=== PATIENT | female | born 1960 | race Caucasian/White ===

== ENCOUNTER 2016-05-16 15:53 | Emergency (ER) | payer BC, OTHER ==
[~2016-05-16] VITALS: Ht 167.6 cm; Wt 52.0 kg
[2016-05-16 16:10] VITALS: BP 139/103; PULSE 70; RESP 14; TEMP 98.7; O2SAT 95
--- NOTE | 2016-05-16 18:39 | RADHPO ---
EXAM DATE/TIME: 05/16/2016 18:07 [facility] COMPARISON: CT BRAIN W/O CONTRAST, September 01, 2014, 23:10. INDICATIONS : Cephalgia and right cranial numbness since fall two days ago. RADIATION DOSE: 64.08 CTDIvol (mGy) MEDICAL HISTORY : Hypertension. Gastroesophageal reflux disease. SURGICAL HISTORY : None. ENCOUNTER: Initial ACUITY: 2 days PAIN SCALE: 8/10 LOCATION: Right temporal TECHNIQUE: Multiple contiguous axial images were obtained of the head. Using automated exposure control and adj ustment of the mA and/or kV according to patient size, radiation dose was kept as low as reasonably a chievable to obtain optimal diagnostic quality images. FINDINGS: CEREBRUM: The ventricles are normal for age. No evidence of midline shift, mass lesion, hemorrhage or acute in farction. No extra-axial fluid collections are seen. POSTERIOR FOSSA: The cerebellum and brainstem are intact. The 4th ventricle is midline. The cerebellopontine angle i s unremarkable. EXTRACRANIAL: The visualized portion of the orbits is intact. SKULL: The calvaria is intact. No evidence of skull fracture. There is soft tissue swelling over the right parietal bone. CONCLUSION: Negative exam with no evidence of hemorrhage or mass effect. Dani Childs MD on May 16, 2016 at 18:36 Board Certified Radiologist. This report was verified electronically.
--- NOTE | 2016-05-16 18:41 | RADHPO ---
EXAM DATE/TIME: 05/16/2016 18:07 [facility] COMPARISON: No previous studies available for comparison. INDICATIONS : Right neck pain since fall two days ago. RADIATION DOSE: 24.69 CTDIvol (mGy) MEDICAL HISTORY : Hypertension. Gastroesophageal reflux disease. Esophageal stricture. SURGICAL HISTORY : None. ENCOUNTER: Initial ACUITY: 2 days PAIN SCALE: 8/10 LOCATION: Right neck TECHNIQUE: Volumetric scanning of the cervical spine was performed. Multiplanar reconstructions in the sagittal, coronal and oblique axial planes were performed. Using automated exposure control and adjustment o f the mA and/or kV according to patient size, radiation dose was kept as low as reasonably achievable to obtain optimal diagnostic quality images. FINDINGS: The sagittal reconstructions demonstrate the vertebral bodies are intact. There is a mild retrolisthe sis of C5 on C6 of several millimeters. Degenerative disc changes are present at the C5-6 and C6-7 le vels with disc space narrowing and hypertrophic change. and normal prevertebral soft tissues. The den s is intact and there is a normal atlantoaxial relationship. The axial images demonstrate that the vertebral bodies and posterior elements are intact. The soft ti ssues are within normal limits. There is no evidence of acute fracture or malalignment. CONCLUSION: 1. No acute fracture. 2. Degenerative disc change at C5-6 and C6-7 levels with mild retrolisthesis of C5 on C6. Dani Childs MD on May 16, 2016 at 18:38 Board Certified Radiologist. This report was verified electronically.
[2016-05-16 19:06] VITALS: BP 131/89; PULSE 72; RESP 16; O2SAT 98
--- NOTE | 2016-05-16 19:17 | PD ---
HPI Chief Complaint: Fall Time Seen by Provider: 17:00 Travel History International Travel<30 days: No Contact w/Intl Traveler<30days: No Traveled to known affect area: No History of Present Illness HPI Is a 56-year-old female who presents after slip and fall 2 days ago. Patient states she was in the shower and fell forward and twisted on her way down impacting the right posterior aspect of her head. She states she had no loss of consciousness. She is concerned because she has had continuing mild headache and some tingling sensation on the right side of her scalp. PFSH Past Medical History Heart Rhythm Problems: Yes ( ALEXA) Cancer: No Cardiovascular Problems: Yes High Cholesterol: Yes Congestive Heart Failure: No Diabetes: No Endocrine: No Gastrointestinal Disorders: Yes (esophageal stricture) GERD: Yes Genitourinary: No Hepatitis: No Hypertension: Yes Immune Disorder: No Implanted Vascular Access Dvce: No Musculoskeletal: No Neurologic: No Psychiatric: No Reproductive: No Respiratory: No ?: Not Menopausal: Yes Tubal Ligation: Yes Past Surgical History Abdominal Surgery: Yes (ABDOMINOPLASTY) Cardiac Surgery: No Ear Surgery: No Endocrine Surgery: No Eye Surgery: No Genitourinary Surgery: No Gynecologic Surgery: No Neurologic Surgery: No Oral Surgery: Yes (TONSILECTOMY) Thoracic Surgery: No Tonsillectomy: Yes Other Surgery: Yes Social History Alcohol Use: Yes (2-3 GLASSES OF WINE DAILY) Tobacco Use: Yes (1/4 PPD) Substance Use: No Allergies-Medications (Allergen,Severity, Reaction): Coded Allergies: Lisinopril (Unverified Allergy, Severe, FACIAL SWELLING, 05/16/16) Latex (Verified Allergy, Unknown, 05/16/16) Reported Meds & Prescriptions Reported Meds & Active Scripts Active No Active Prescriptions or Reported Medications Review of Systems Except as stated in HPI: all other systems reviewed are Neg Physical Exam Narrative GENERAL: Well-developed well-nourished no apparent distress SKIN: Warm and dry. HEAD: No raccoons eyes, there is some bruising behind the right auricle, left auricle clear there is a hematoma superior to the right auricle which is probably contributing to the postauricular ecchymosis. No lacerations no abrasions or. Normocephalic. EYES: Pupils equal and round. No scleral icterus. No injection or drainage. ENT: No nasal bleeding or discharge. Mucous membranes pink and moist. TMs clear bilaterally NECK: Trachea midline. No JVD. CARDIOVASCULAR: Regular rate and rhythm. No murmur appreciated.2+ bilateral equal pulses in all 4 extremity's. RESPIRATORY: No accessory muscle use. Clear to auscultation. Breath sounds equal bilaterally. There is some bruising which is fairly minor to the right flank over the inferior most rib cage. No hematoma no laceration or bruising. GASTROINTESTINAL: Abdomen soft, non-tender, nondistended. Hepatic and splenic margins not palpable. MUSCULOSKELETAL: No obvious deformities. No clubbing. No cyanosis. No edema. Extremities are atraumatic. Pulses motor and sensory intact in all [address] CT or L-spine tenderness. He is been placed in a cervical collar from the waiting room. NEUROLOGICAL: Awake and alert and oriented, cranial nerves II through XII are grossly intact and nonfocal, 5 out of 5 strength in all 4 extremities, and relates even with a narrow based gait and balanced. PSYCHIATRIC: Appropriate mood and affect; insight and judgment normal. Data Data Last Documented VS Vital Signs Date Time Temp Pulse Resp B/P Pulse Ox O2 Delivery O2 Flow Rate FiO2 05/16/16 19:06 72 16 131/89 98 Room Air 05/16/16 16:[address] Brain W/O Iv Contrast(Rout) (05/16/16 ) Ct Cerv Spine W/O Contrast (05/16/16 ) MDM Medical Decision Making Medical Screen Exam Complete: Yes Emergency Medical Condition: Yes Differential Diagnosis Closed head injury, scalp hematoma, intracranial hematoma, cervical spine injury , basilar skull fracture seems unlikely. Narrative Course Patient was roomed in emergency department, she has indications for CT head and C-spine. Last [address] 05/16/16 0000 Signed Impressions: Service Date/Time: Monday, May 16, 2016 18:07 - CONCLUSION: Negative exam with no evidence of hemorrhage or mass effect. Dani Childs MD Cervical Spine CT 05/16/16 0000 Signed Impressions: Service Date/Time: Monday, May 16, 2016 18:07 - CONCLUSION: 1. No acute fracture. 2. Degenerative disc change at C5-6 and C6-7 levels with mild retrolisthesis of C5 on C6. Dani Childs MD Patient c-collar removed and has full nontender range of motion of the neck. She appears well and in no apparent distress. Ecchymosis behind her right ear is most likely due to the hematoma which is superior to this by about 45 cm. Neurologically she is intact she was offered medicine for her headache and declined at this time. Patient is reassured she stable for discharge. Diagnosis Primary Impression: Closed head injury Qualified Code: S09.90XA - Closed head injury, initial encounter Scripts No Active Prescriptions or Reported Meds Disposition: 01 DISCHARGE HOME Condition: Stable Wilver Lazaro MD May 16, 2016 19:17
== END 2016-05-16 19:28 | disposition home or self-care (01) ==
LOC: PHED 15:53
DX: S09.90XA Unspecified injury of head, initial encounter (principal); E78.00 Pure hypercholesterolemia, unspecified; I10 Essential (primary) hypertension; K21.9 Gastro-esophageal reflux disease without esophagitis; F17.210 Nicotine dependence, cigarettes, uncomplicated; W18.2XXA Fall in (into) shower or empty bathtub, initial encounter; Y93.E1 Activity, personal bathing and showering; Y92.002 Bathroom of unspecified non-institutional (private) residence as the place of occurrence of the external cause; Y99.8 Other external cause status
CPT/HCPCS: 70450; 72125

== ENCOUNTER 2016-10-20 03:14 | Emergency (ER) | payer OTHER ==
[~2016-10-20] VITALS: Ht 162.6 cm; Wt 51.6 kg
[2016-10-20 03:19] VITALS: BP 148/94; PULSE 69; RESP 18; TEMP 97.9; O2SAT 99
[2016-10-20] MEDS ORDERED: OMEP10CA PO (03:34)
[2016-10-20] MEDS ORDERED: ADVITAB3 PO (03:34)
[2016-10-20] MEDS ORDERED: OMEGCAP PO (03:34)
[2016-10-20] MEDS ORDERED: oxyCODONE/ACETAMINOPHEN 5 MG/325 MG TAB PO ONE (04:00)
--- NOTE | 2016-10-20 04:04 | PD ---
HPI . Left rib pain Chief Complaint: Fall Time Seen by Provider: 03:46 Travel History International Travel<30 days: No Contact w/Intl Traveler<30days: No Traveled to known affect area: No History of Present Illness HPI Patient presents for evaluation of injury sustained in a fall. The patient states that she was getting up off the toilet and tripped on the rug and fell and landed on the edge of the bathtub. She comes in complaining of pain in the left lateral rib cage. She states that it hurts to breathe but she is not short of breath. She states that she took ibuprofen, 400 mg couple of hours ago without any relief. PFSH Past Medical History Heart Rhythm Problems: Yes ( ALEXA) Cancer: No Cardiovascular Problems: Yes High Cholesterol: Yes Congestive Heart Failure: No Diabetes: No Endocrine: No Gastrointestinal Disorders: Yes (esophageal stricture) GERD: Yes Genitourinary: No Hepatitis: No Hypertension: Yes Immune Disorder: No Implanted Vascular Access Dvce: No Musculoskeletal: No Neurologic: No Psychiatric: No Reproductive: No Respiratory: No Tetanus Vaccination: Unknown Influenza Vaccination: No ?: Not Menopausal: Yes : 3 Para: 3 Tubal Ligation: Yes Past Surgical History Abdominal Surgery: Yes (ABDOMINOPLASTY) Cardiac Surgery: No Ear Surgery: No Endocrine Surgery: No Eye Surgery: No Genitourinary Surgery: No Gynecologic Surgery: No Neurologic Surgery: No Oral Surgery: Yes (TONSILECTOMY) Thoracic Surgery: No Tonsillectomy: Yes Other Surgery: Yes Social History Alcohol Use: Yes (4-5 beers/wine daily) Tobacco Use: Yes (1 pack/week) Substance Use: No Allergies-Medications (Allergen,Severity, Reaction): Coded Allergies: lisinopril (Verified Allergy, Severe, FACIAL SWELLING, 10/20/16) latex (Verified Allergy, Unknown, 10/20/16) Reported Meds & Prescriptions Reported Meds & Active Scripts Active Reported Omeprazole 10 Mg Cap Unknown Dose PO DAILY Advil Allergy Sinus (Ntbxtjcvzwqyfnmu-Kuekvwpwobknkzf-Hfedfchsv) 2-30-200 Mg Tab 1 Tab PO Q4H PRN [place]-3 Fish Oil/Vitamin (Fish Oil-Cholecalciferol) 1,000-1,000 Mg Cap 1 Cap PO DAILY Review of Systems Except as stated in HPI: all other systems reviewed are Neg Physical Exam Narrative GENERAL: Awake and alert and in no acute distress. SKIN: Warm and dry. She does have some mild bruising to the left flank area. HEAD: Atraumatic. Normocephalic. EYES: Pupils equal and round. Extraocular movements are intact. NECK: Trachea midline. CARDIOVASCULAR: Regular rate and rhythm. RESPIRATORY: No accessory muscle use. Lungs have full and equal breath sounds. She has tenderness to palpation in the left posterior lateral rib cage. I did not feel any obvious movement of the ribs. MUSCULOSKELETAL: No obvious deformities. No edema. NEUROLOGICAL: Awake and alert. No obvious cranial nerve deficits. Motor grossly within normal limits. Normal speech. PSYCHIATRIC: Appropriate mood and affect; insight and judgment normal. Data Data Last Documented VS Vital Signs Date Time Temp Pulse Resp B/P Pulse Ox O2 Delivery O2 Flow Rate FiO2 10/20/16 03:19 97.9 69 18 148/94 99 Room Air Orders Ribs, Uni (W/Exp Cxr-Min 3vw) (10/20/16 03:54) Oxycodone-Acetamin 5-325 Mg (Percocet (10/20/16 04:00) MDM Medical Decision Making Medical Screen Exam Complete: Yes Emergency Medical Condition: Yes Differential Diagnosis Differential diagnosis of chest trauma includes but is not limited to superficial abrasions/contusions, rib fracture, pneumothorax, hemothorax, pulmonary contusion, cardiac contusion, ruptured thoracic aorta Narrative Course Patient presents for evaluation of a left chest wall injury. She will be given Percocet for pain. Rib x-rays are pending. L rib X-rays: Multiple views of the left ribs were performed. There is no evidence of displaced fracture. No destructive lesions or areas of periosteal thickening are seen. Expiratory view of the chest is negative for pneumothorax. The mediastinal structures are midline. Minimal atelectatic changes of the right hemidiaphragm. The x-rays were independently viewed by me. Diagnosis Primary Impression: Contusion of left chest wall Qualified Code: S20.212A - Contusion of left chest wall, initial encounter Patient Instructions: General Instructions, Narcotic given in the ED, Rib Contusion (ED) Med/Other Pt SpecificInfo: Prescription(s) given Scripts Tramadol (Ultram)50 Mg Tab50 Mg PO Q4H PRN (PAIN) #12 TAB Ref 0 Prov:Tierney Kaufman MD 10/20/16 Disposition: 01 DISCHARGE HOME Condition: Stable Tierney Kaufman MD Oct 20, 2016 04:04
--- NOTE | 2016-10-20 04:14 | RADRPT ---
EXAM DATE/TIME: 10/20/2016 04:00 [facility] COMPARISON: No previous studies available for comparison. INDICATIONS : Left sided rib pain post fall today MEDICAL HISTORY : None. SURGICAL HISTORY : None. ENCOUNTER: Initial ACUITY: 1 day PAIN SCORE: 10/10 LOCATION: Left axillary ribs FINDINGS: Multiple views of the left ribs were performed. There is no evidence of displaced fracture. No dest ructive lesions or areas of periosteal thickening are seen. Expiratory view of the chest is negative for pneumothorax. The mediastinal structures are midline. Minimal atelectatic changes of the right hemidiaphragm. CONCLUSION: No fracture. Keyon Medel MD on October 20, 2016 at 4:11 Board Certified Radiologist. This report was verified electronically.
[2016-10-20] MEDS ORDERED: ULTR50TA5 PO (04:19)
== END 2016-10-20 04:46 | disposition home or self-care (01) ==
LOC: PHED 03:14
DX: S20.212A Contusion of left front wall of thorax, initial encounter (principal); I10 Essential (primary) hypertension; E78.00 Pure hypercholesterolemia, unspecified; Z72.0 Tobacco use; Z86.79 Personal history of other diseases of the circulatory system; Z87.19 Personal history of other diseases of the digestive system; W01.198A Fall on same level from slipping, tripping and stumbling with subsequent striking against other object, initial encounter; Y92.002 Bathroom of unspecified non-institutional (private) residence as the place of occurrence of the external cause
CPT/HCPCS: 71101; 99283

== ENCOUNTER 2017-08-20 13:53 | Emergency (ER) | payer OTHER ==
[~2017-08-20] VITALS: Ht 165.1 cm; Wt 51.0 kg
[~2017-08-20 13:53] MED LIST: ADVITAB3 PO; OMEGCAP PO; OMEP10CA PO; TRAM50 PO
[2017-08-20 14:05] VITALS: BP 130/94; PULSE 83; RESP 16; TEMP 98.4; O2SAT 96
[2017-08-20] MEDS ORDERED: HTN MED (14:28)
--- NOTE | 2017-08-20 14:50 | PD ---
HPI Chief Complaint: Alcohol/Drug Intoxication Time Seen by Provider: 14:36 Travel History International Travel<30 days: No Contact w/Intl Traveler<30days: No Traveled to known affect area: No History of Present Illness HPI 57yo F with PMH of alcohol abuse was brought here by her boyfriend for evaluation. Pt is AAOx3 but has alcohol on breath and admits to drinking today. Said she had ultrasound of abdomen and showed something in her liver 3 days ago and she was feeling nervous so took 1 of her nephrew's ativan today at 4am. Said she then drank alcohol and was not feeling well. She said that she now has no symptoms and changed her mind about coming here. Denies any fever, chest pain, sob, n/v, abdominal pain, fall, focal weakness or numbness. Denies any suicidal or homicidal ideations. Said her boyfriend dropped her off and then went surfing. PFSH Past Medical History Hx Anticoagulant Therapy: Yes (asa 81mg) Heart Rhythm Problems: Yes ( ALEXA) Cancer: No Cardiovascular Problems: Yes High Cholesterol: Yes Congestive Heart Failure: No Diabetes: No Diminished Hearing: No Endocrine: No Gastrointestinal Disorders: Yes (esophageal stricture) GERD: Yes Genitourinary: No Hepatitis: No Hypertension: Yes Immune Disorder: No Implanted Vascular Access Dvce: No Musculoskeletal: No Neurologic: No Psychiatric: No Reproductive: No Respiratory: No Tetanus Vaccination: Unknown Influenza Vaccination: No ?: Not Menopausal: Yes : 3 Para: 3 Tubal Ligation: Yes Past Surgical History Abdominal Surgery: Yes (ABDOMINOPLASTY) Cardiac Surgery: No Ear Surgery: No Endocrine Surgery: No Eye Surgery: No Genitourinary Surgery: No Gynecologic Surgery: No Neurologic Surgery: No Oral Surgery: Yes (TONSILECTOMY) Thoracic Surgery: No Tonsillectomy: Yes Other Surgery: Yes Social History Alcohol Use: Yes (4-5 beers/wine daily) Tobacco Use: Yes (1 pack/week) Substance Use: No Allergies-Medications (Allergen,Severity, Reaction): Coded Allergies: lisinopril (Verified Allergy, Severe, FACIAL SWELLING, 08/20/17) red dye (Verified Allergy, Severe, Anaphylaxis, 08/20/17) latex (Verified Allergy, Unknown, 08/20/17) Reported Meds & Prescriptions Reported Meds & Active Scripts Active Reported [HTN Med] Omeprazole 10 Mg Cap Unknown Dose PO DAILY [place]-3 Fish Oil/Vitamin (Fish Oil-Cholecalciferol) 1,000-1,000 Mg Cap 1 Cap PO DAILY Review of Systems Except as stated in HPI: all other systems reviewed are Neg Physical Exam Narrative GENERAL: 57yo F not in distress. SKIN: Focused skin assessment warm/dry. HEAD: Atraumatic. Normocephalic. EYES: Pupils equal and round. No scleral icterus. No injection or drainage. ENT: No nasal bleeding or discharge. Mucous membranes pink and moist. NECK: Trachea midline. No JVD. CARDIOVASCULAR: Regular rate and rhythm. No murmur appreciated. RESPIRATORY: No accessory muscle use. Clear to auscultation. Breath sounds equal bilaterally. GASTROINTESTINAL: Abdomen soft, non-tender, nondistended. MUSCULOSKELETAL: No obvious deformities. No clubbing. No cyanosis. No edema. NEUROLOGICAL: Awake and alert. No obvious cranial nerve deficits. Motor grossly within normal limits. Normal speech. PSYCHIATRIC: Appropriate mood and affect; insight and judgment normal. Data Data Last Documented VS Vital Signs Date Time Temp Pulse Resp B/P (MAP) Pulse Ox O2 Delivery O2 Flow Rate FiO2 08/20/17 14:05 98.4 83 16 130/94 (106) 96 Orders Orders Ed Discharge Order (08/20/17 15:12) MDM Medical Decision Making Medical Screen Exam Complete: Yes Emergency Medical Condition: Yes Differential Diagnosis Routine medical exam vs. alcohol abuse Narrative Course 57yo F was brought here by boyfriend and said she was feeling bad so she took 1 ativan and then drank alcohol. Pt now changed her mind and does not want to be evaluated. She does have alcohol on breath but pt drinks daily and has no signs of trauma. Pt is AAOx3 and has no focal neurologic deficits. Vital signs are stable. My plan is to discharge pt with someone such as boyfriend or friend. I was informed by the nurse that when he went into the room, she was no longer there. Pt has no IV catheter. Apparently, her boyfriend was waiting in the waiting room because she was mad at him. Pt could not be found anywhere and assumed had left the ED. Pt is not suicidal or homicidal and if she left, she is able to ambulate without assistance. Charge nurse notified. Diagnosis Primary Impression: Alcohol abuse Patient Instructions: General Instructions Departure Forms: Tests/Procedures Additional Instructions: Patient left the ED without her paper work. Med/Other Pt SpecificInfo: No Change to Meds Disposition: 01 DISCHARGE HOME Condition: Stable Sheridan Coronado DO Aug 20, 2017 14:50
[2017-08-29] MEDS ORDERED: ASPI81CH6 CHEW (04:17)
[2017-08-29] MEDS ORDERED: CALG500 PO (06:08)
== END 2017-08-20 15:22 | disposition home or self-care (01) ==
LOC: PHED 13:53
DX: F10.10 Alcohol abuse, uncomplicated (principal); T42.4X1A Poisoning by benzodiazepines, accidental (unintentional), initial encounter; I10 Essential (primary) hypertension; Z72.0 Tobacco use; Z79.82 Long term (current) use of aspirin
CPT/HCPCS: 99281